=== PATIENT | female | born 1950 | race African-American/Black ===

== ENCOUNTER 2019-04-15 04:52 | Emergency (ER) | payer OTHER ==
[~2019-04-15] VITALS: Ht 167.6 cm; Wt 81.0 kg
[2019-04-15] MEDS ORDERED: NALOXONE HCL 1 MG/ML 2ML VIAL IV ONE ×2 (05:15→05:45)
[2019-04-15] MEDS ORDERED: ONDANSETRON HCL 4MG/2ML INJ IV ONE (05:15)
[2019-04-15] MEDS ORDERED: NALOXONE HCL 1 MG/ML 2ML VIAL ONE (05:42)
[2019-04-15 06:24] LABS: CHLORIDE 90 mEq/L (98-107)
[2019-04-15 06:57] LABS: HEMATOCRIT. 34.5 % (36.0-48.0); HEMOGLOBIN. 11.9 g/dL (12.0-16.0); LYMPHOCYTES % 41.4 % (20.0-50.0); MEAN CORPUSCULAR HEMOGLOBIN 31.7 pg (28.0-32.0); MEAN CORPUSCULAR VOLUME 92.2 fL (81.0-99.0); MONOCYTES % 14.2 % (2.0-8.0); NEUTROPHILS % 38.4 % (40.0-76.0); PLATELET 207 x1000/uL (130-400); RED BLOOD CELL COUNT 3.74 mill/uL (4.2-5.4)
[2019-04-15 07:27] LABS: BG BASE EXCESS -0.8 mmol/L (-2.0-2.0); BG CARBOXYHEMOGLOBIN 0.6 % (0.5-1.5); BG FRACTION INSPIRED OXYGEN 32; BG HCO3 ACT 24.6 mmol/L (22.0-26.0); BG METHEMOGLOBIN 0.3 % (0.0-1.5); BG OXYHEMOGLOBIN 97.1 % (94.0-97.0); BG PCO2 43.5 mmHg (35.0-45.0); BG PO2 110.4 mmHg (75.0-100.0); BG SAMPLE SITE RIGHT BRACHIAL; BG TOTAL HEMOGLOBIN 13.1 g/dL (12.0-18.0); BG VENT MODE NASAL CANNULA
[2019-04-15 08:21] LABS: *AMPHETAMINES SCREEN URINE NEGATIVE (NEGATIVE); *BARBITURATES SCREEN URINE NEGATIVE (NEGATIVE); *BENZODIAZEPINES SCREEN URINE NEGATIVE (NEGATIVE); *COCAINE SCREEN URINE NEGATIVE (NEGATIVE); CANNABINOID URINE SCREEN NEGATIVE (NEGATIVE); METHADONE URINE SCREEN NEGATIVE (NEGATIVE); OPIATES URINE SCREEN PRESUMTIVE POSITIVE (NEGATIVE)
[2019-04-15] MEDS ORDERED: IOHEXOL-350 100 ML BOTTLE ONE (08:21)
[2019-04-15] MEDS ORDERED: SUCCINYLCHOLINE CHLORIDE 200MG/10ML IV ONE ×2 (08:21→08:30)
[2019-04-15] MEDS ORDERED: ETOMIDATE 2MG/ML 10ML VIAL IV ONE ×2 (08:21→08:30)
[2019-04-15 08:22] LABS: PHENCYCLIDINE URINE SCREEN NEGATIVE (NEGATIVE)
[2019-04-15] MEDS ORDERED: PROPOFOL 10MG/ML 100ML 100 ML IV SCH (08:30)
[2019-04-15] MEDS ORDERED: PROPOFOL 200MG/20ML VIAL IV ONE (08:30)
[2019-04-15 09:13] VITALS: BP 100/63
== END 2019-04-15 09:30 | disposition short-term general hospital (02) ==
LOC: ER 04:52 → CANRESERV 10:27 → ENRESERV 10:27 → CANBEDREQ 18:44
DX: I63.9 Cerebral infarction, unspecified (principal); J44.9 Chronic obstructive pulmonary disease, unspecified; I50.9 Heart failure, unspecified; Z88.1 Allergy status to other antibiotic agents; Z88.6 Allergy status to analgesic agent
CPT/HCPCS: 31500; 36415; 36600; 70450; 70496; 70498; 71045; 80053; 80305; 82375; 82805; 82962; 83880; 84484; 85025; 93005; 96374; 96375; 99291; J0330; J2310; J2405; J2704; J3490; Q9967; 94002; A4315

== ENCOUNTER 2020-04-23 18:38 | Emergency (ER) | payer OTHER, MEDICAID ==
[~2020-04-23] VITALS: Ht 170.2 cm; Wt 98.0 kg
[2020-04-23] MEDS ORDERED: SODIUM CHLORIDE 0.9% 1000ML BAG (SEPSIS BOLUS) IV ONE (19:30)
[2020-04-23] MEDS ORDERED: VANCOMYCIN 1 G PREMIX 200 ML IV ONE (19:30)
[2020-04-23] MEDS ORDERED: AZITHROMYCIN 500 MG in DEXT 5% WATER 250 ML IV ONE (19:30)
[2020-04-23] MEDS ORDERED: PIPERACILLIN/TAZ 3.375G PREMIX 50 ML IV ONE (19:30)
[2020-04-23 21:21] LABS: INR 1.3; PROTHROMBIN TIME 13.7 sec (9.6-11.0)
[2020-04-23 21:24] LABS: HEMATOCRIT. 21.4 % (36.0-48.0); HEMOGLOBIN. 7.1 g/dL (12.0-16.0); MEAN CORPUSCULAR HEMOGLOBIN 31.1 pg (28.0-32.0); MEAN CORPUSCULAR VOLUME 93.6 fL (81.0-99.0); MEAN PLATELET VOLUME 8.5 fl (7.4-10.4); PLATELET 119 x1000/uL (130-400); RED BLOOD CELL COUNT 2.29 mill/uL (4.2-5.4); RED CELL DISTRIBUTION WIDTH 13.7 % (11.6-14.6)
[2020-04-23 22:38] LABS: PLATELET ESTIMATE DECREASED
[2020-04-23 23:35] LABS: CHLORIDE 94 mEq/L (98-107)
[2020-04-23 23:39] LABS: ETHANOL BLOOD < 10 mg/dL
[2020-04-24] MEDS ORDERED: ACETAMINOPHEN 650MG SUPP PR ONE (00:15)
[2020-04-24 04:20] VITALS: BP 103/55
== END 2020-04-24 05:07 | disposition short-term general hospital (02) ==
LOC: ER 18:38 → CANBEDREQ 04-24 06:03
DX: J18.9 Pneumonia, unspecified organism (principal); D64.9 Anemia, unspecified; R09.02 Hypoxemia; J45.909 Unspecified asthma, uncomplicated; I50.9 Heart failure, unspecified; J44.9 Chronic obstructive pulmonary disease, unspecified; M32.9 Systemic lupus erythematosus, unspecified; Z88.3 Allergy status to other anti-infective agents; Z88.6 Allergy status to analgesic agent; Z20.828 Contact with and (suspected) exposure to other viral communicable diseases
CPT/HCPCS: 36415; 70450; 71045; 80053; 80320; 83605; 83690; 84145; 84484; 85025; 85610; 86850; 86900; 86901; 87040; 87426; 93005; 96365; 96375; 99285; J0456; J2543; J3370; J7030; J7060; G0480

== ENCOUNTER 2021-04-20 04:26 | Inpatient (IN) | payer OTHER, MEDICAID ==
[~2021-04-20] VITALS: Ht 154.9 cm; Wt 89.1 kg
[~2021-04-20 04:26] MED LIST: ASCO500C18 MT; BACL-141 PO; BACL20TA MT; BIOT10TA2 MT; BISO5TAB13 MT; BLACK ELDERBERRY PO; CALC-1042 MT; CLOP75TA4 MT; CRAN400C PO; CYAN-50 MT; CYCL1DRO6 OP; DULO60CA44 MT; FLUT1BLS8 IH; FOLI0.8C MT; FURO80TA87 MT; HYDR-4009 PO; HYDR200T80 PO; IRON PO; L.AC1CAP6 PO; LEVO112T2 MT; MAGN100T6 PO; MULT-1146 MT; PREG225C MT; PROT20 MT; REV20 MT; SIMV20TA2 MT; TIOT18CA3 INH; TIZA4CAP6 PO; VITAMIN D3 PO
[2021-04-20] MEDS ORDERED: SODIUM CHLORIDE 0.9% 1000ML BAG (SEPSIS BOLUS) IV ONE (05:00)
[2021-04-20] MEDS ORDERED: NOREPINEPHRINE 8MG/250ML PMX 250 ML IV STA (05:12)
[2021-04-20] MEDS ORDERED: PIPERACILLIN/TAZ 3.375G PREMIX 50 ML IV ONE (05:15)
[2021-04-20] MEDS ORDERED: VANCOMYCIN 1 G PREMIX 200 ML IV ONE (05:15)
[2021-04-20 05:19] LABS: BASOPHILS % 0.9 % (0.0-2.0); HEMATOCRIT. 27.9 % (36.0-48.0); HEMOGLOBIN. 9.8 g/dL (12.0-16.0); MEAN CORPUSCULAR HEMOGLOBIN 30.6 pg (28.0-32.0); MEAN CORPUSCULAR VOLUME 87.1 fL (81.0-99.0); MEAN PLATELET VOLUME 7.5 fl (7.4-10.4); MONOCYTES % 8.9 % (2.0-8.0); NEUTROPHILS % 50.2 % (40.0-76.0); PLATELET 295 x1000/uL (130-400); RED BLOOD CELL COUNT 3.21 mill/uL (4.2-5.4); RED CELL DISTRIBUTION WIDTH 14.3 % (11.6-14.6)
[2021-04-20 05:23] LABS: BG BASE EXCESS 2.3 mmol/L (-2.0-2.0); BG CARBOXYHEMOGLOBIN 0.3 % (0.5-1.5); BG DEOXYHEMOGLOBIN 0.3 % (0.0-5.0); BG FRACTION INSPIRED OXYGEN 100; BG HCO3 ACT 24.2 mmol/L (22.0-26.0); BG METHEMOGLOBIN 0.3 % (0.0-1.5); BG OXYGEN SATURATION 99.7 % (92.0-98.5); BG OXYHEMOGLOBIN 99.1 % (94.0-97.0); BG PCO2 28.5 mmHg (35.0-45.0); BG PH 7.546 (7.350-7.450); BG PO2 517.3 mmHg (75.0-100.0); BG SAMPLE SITE RIGHT BRACHIAL; BG TOTAL HEMOGLOBIN 10.7 g/dL (12.0-18.0); BG VENT MODE VENT - AC
[2021-04-20 05:27] LABS: CHLORIDE 96 mEq/L (98-107)
[2021-04-20 05:34] LABS: INR 1.1; PROTHROMBIN TIME 11.4 sec (9.6-11.0)
[2021-04-20] MEDS ORDERED: PROPOFOL 10MG/ML 100ML 100 ML IV ONE (06:15)
[2021-04-20 07:59] LABS: CLARITY URINE CLEAR (CLEAR); COLOR URINE YELLOW (YELLOW); KETONES URINE NEGATIVE (NEGATIVE); LEUKOCYTE ESTERASE URINE NEGATIVE (NEGATIVE); NITRITE URINE NEGATIVE (NEGATIVE); OCCULT BLOOD URINE NEGATIVE (NEGATIVE); PROTEIN URINE NEGATIVE (NEGATIVE); SPECIFIC GRAVITY URINE 1.006 (1.005-1.030); UROBILINOGEN URINE 0.2 E.U./dL (0.2-1.0)
[2021-04-20] MEDS ORDERED: VECURONIUM BROMIDE 10 MG/VIAL IV ONE (08:19)
[2021-04-20] MEDS ORDERED: ETOMIDATE 2MG/ML 10ML VIAL IV ONE (08:19)
[2021-04-20] MEDS ORDERED: FENTANYL CITRATE/PF 1,000 MCG in SODIUM CHLORIDE 0.9% 80 ML IV PRN (08:45)
[2021-04-20] MEDS ORDERED: PROPOFOL 10MG/ML 100ML 100 ML IV PRN (08:45)
[2021-04-20] MEDS ORDERED: FENTANYL CITRATE 2,500 MCG in SODIUM CHLORIDE 0.9% 200 ML IV PRN (09:00)
[2021-04-20] MEDS ORDERED: MAGNESIUM/ALUMINUM HYDROXIDE/SIMETHICONE 30ML UDC PO PRN (09:30)
[2021-04-20] MEDS ORDERED: NITROGLYCERIN 0.4MG TABLET SL SL PRN (09:30)
[2021-04-20] MEDS ORDERED: CLONIDINE 0.1MG TABLET PO PRN (09:30)
[2021-04-20] MEDS ORDERED: DOCUSATE SODIUM 100MG CAPSULE PO PRN (09:30)
[2021-04-20] MEDS ORDERED: GUAIFENESIN 200MG/10ML SUGAR FREE UDC PO PRN (09:30)
[2021-04-20] MEDS ORDERED: ONDANSETRON HCL 4MG/2ML INJ IV PRN (09:30)
[2021-04-20] MEDS ORDERED: NOREPINEPHRINE 8 MG in DEXT 5% WATER 242 ML IV PRN ×2 (09:30→10:00)
[2021-04-20] MEDS ORDERED: ACETAMINOPHEN 325MG TABLET PO PRN (09:30)
[2021-04-20] MEDS ORDERED: VANCOMYCIN 1 G PREMIX 200 ML IV SCH (09:45)
[2021-04-20] MEDS: ENOXAPARIN 40MG/0.4ML SYR SUBCUT SCH (10:09)
[2021-04-20] MEDS: DEXT 5%/LACTATED RINGERS 1,000 ML IV SCH (10:10)
[2021-04-20] MEDS: IPRATROPIUM/ALBUTEROL 0.5-3(2.5)MG/3ML NEB HHN SCH (12:30)
[2021-04-20] MEDS: PIPERACILLIN/TAZ 3.375G PREMIX 50 ML IV SCH ×2 (15:09→22:40)
[2021-04-20 22:46] LABS: CREATINE KINASE MB FRACTION 4.2 ng/mL (0.5-3.6)
[2021-04-21] MEDS ORDERED: VANCOMYCIN 750 MG PREMIX 150 ML IV SCH
[2021-04-21 00:07] LABS: CREATINE KINASE MB FRACTION 5.4 ng/mL (0.5-3.6)
[2021-04-21] MEDS: DEXT 5%/LACTATED RINGERS 1,000 ML IV SCH ×2 (00:18→13:33)
[2021-04-21] MEDS: IPRATROPIUM/ALBUTEROL 0.5-3(2.5)MG/3ML NEB HHN SCH ×5 (02:45→23:39)
[2021-04-21 05:26] LABS: BASOPHILS % 0.7 % (0.0-2.0); EOSINOPHILS % 2.5 % (0.0-5.0); HEMATOCRIT. 28.3 % (36.0-48.0); HEMOGLOBIN. 9.9 g/dL (12.0-16.0); LYMPHOCYTES % 13.7 % (20.0-50.0); MEAN CORPUSCULAR HEMOGLOBIN 30.9 pg (28.0-32.0); MEAN CORPUSCULAR VOLUME 88.4 fL (81.0-99.0); MEAN PLATELET VOLUME 8.1 fl (7.4-10.4); MONOCYTES % 6.8 % (2.0-8.0); NEUTROPHILS % 76.3 % (40.0-76.0); PLATELET 266 x1000/uL (130-400); RED CELL DISTRIBUTION WIDTH 14.2 % (11.6-14.6)
[2021-04-21 05:37] LABS: CHLORIDE 102 mEq/L (98-107)
[2021-04-21 05:51] LABS: PHOSPHORUS 2.5 mg/dL (2.5-4.9)
[2021-04-21] MEDS: PIPERACILLIN/TAZ 3.375G PREMIX 50 ML IV SCH ×3 (06:50→21:48)
[2021-04-21] MEDS: LEVOTHYROXINE SODIUM 112MCG TABLET PO SCH (07:12)
[2021-04-21 08:42] LABS: BG BASE EXCESS 3.2 mmol/L (-2.0-2.0); BG CARBOXYHEMOGLOBIN 0.3 % (0.5-1.5); BG DEOXYHEMOGLOBIN 2.1 % (0.0-5.0); BG HCO3 ACT 27.9 mmol/L (22.0-26.0); BG METHEMOGLOBIN 0.3 % (0.0-1.5); BG OXYGEN SATURATION 97.9 % (92.0-98.5); BG OXYHEMOGLOBIN 97.3 % (94.0-97.0); BG PCO2 43.1 mmHg (35.0-45.0); BG PH 7.429 (7.350-7.450); BG PO2 103.1 mmHg (75.0-100.0); BG SAMPLE SITE RIGHT RADIAL; BG TOTAL HEMOGLOBIN 11.4 g/dL (12.0-18.0); BG VENT MODE VENT - AC
[2021-04-21] MEDS ORDERED: KCL 20MEQ/100ML PREMIX 100 ML IV SCH (09:00)
[2021-04-21] MEDS ORDERED: MAGNESIUM 4 G PREMIX 100 ML IV SCH (09:00)
[2021-04-21] MEDS: ENOXAPARIN 40MG/0.4ML SYR SUBCUT SCH (09:40)
[2021-04-21] MEDS: PANTOPRAZOLE SODIUM 40 MG/VIAL IV SCH (09:40)
[2021-04-21] MEDS: CLOPIDOGREL 75MG TABLET PO SCH (10:04)
[2021-04-21] MEDS: PROPOFOL 10MG/ML 100ML 100 ML IV PRN ×2 (11:44→17:44)
[2021-04-21] MEDS ORDERED: PROPOFOL 10MG/ML 100ML 100 ML IV PRN (15:30)
[2021-04-21] MEDS: VANCOMYCIN 750 MG PREMIX 150 ML IV SCH (16:26)
[2021-04-22] VITALS (63 sets, daily range): BP systolic 85–150; BP diastolic 42–80
[2021-04-22] MEDS: VANCOMYCIN 750 MG PREMIX 150 ML IV SCH ×2 (00:17→12:51)
[2021-04-22] MEDS: DEXT 5%/LACTATED RINGERS 1,000 ML IV SCH ×2 (01:30→14:52)
[2021-04-22 04:48] LABS: BASOPHILS % 0.7 % (0.0-2.0); HEMATOCRIT. 29.2 % (36.0-48.0); LYMPHOCYTES % 22.5 % (20.0-50.0); MEAN CORPUSCULAR HEMOGLOBIN 30.5 pg (28.0-32.0); MEAN CORPUSCULAR VOLUME 89.3 fL (81.0-99.0); MEAN PLATELET VOLUME 8.1 fl (7.4-10.4); MONOCYTES % 9.7 % (2.0-8.0); NEUTROPHILS % 63.1 % (40.0-76.0); PLATELET 301 x1000/uL (130-400); RED BLOOD CELL COUNT 3.27 mill/uL (4.2-5.4); RED CELL DISTRIBUTION WIDTH 14.8 % (11.6-14.6)
[2021-04-22 05:10] LABS: CHLORIDE 101 mEq/L (98-107)
[2021-04-22 05:21] LABS: PHOSPHORUS 3.3 mg/dL (2.5-4.9)
[2021-04-22 05:24] LABS: T4 FREE 0.98 ng/dL (0.76-1.46)
[2021-04-22] MEDS: PIPERACILLIN/TAZ 3.375G PREMIX 50 ML IV SCH (05:44)
[2021-04-22] MEDS: IPRATROPIUM/ALBUTEROL 0.5-3(2.5)MG/3ML NEB HHN SCH ×2 (08:58→21:14)
[2021-04-22] MEDS: CLOPIDOGREL 75MG TABLET PO SCH (09:40)
[2021-04-22] MEDS: PANTOPRAZOLE SODIUM 40 MG/VIAL IV SCH (09:40)
[2021-04-22] MEDS: LEVOTHYROXINE SODIUM 112MCG TABLET PO SCH (09:40)
[2021-04-22] MEDS: ENOXAPARIN 40MG/0.4ML SYR SUBCUT SCH (09:40)
[2021-04-22 09:48] LABS: BG BASE EXCESS -1.4 mmol/L (-2.0-2.0); BG CARBOXYHEMOGLOBIN 0.2 % (0.5-1.5); BG DEOXYHEMOGLOBIN 2.5 % (0.0-5.0); BG FRACTION INSPIRED OXYGEN 30; BG METHEMOGLOBIN 0.2 % (0.0-1.5); BG OXYGEN SATURATION 97.5 % (92.0-98.5); BG OXYHEMOGLOBIN 97.1 % (94.0-97.0); BG PCO2 43.5 mmHg (35.0-45.0); BG PO2 104.6 mmHg (75.0-100.0); BG SAMPLE SITE LEFT RADIAL; BG TOTAL HEMOGLOBIN 10.9 g/dL (12.0-18.0); BG VENT MODE VENT - SIMV
[2021-04-22] MEDS ORDERED: POTA-79 MT (10:12)
[2021-04-22] MEDS ORDERED: ALBU6.7H9 IH (10:12)
[2021-04-22] MEDS: PROPOFOL 10MG/ML 100ML 100 ML IV PRN ×2 (11:05→20:25)
[2021-04-22 13:49] LABS: BG BASE EXCESS 2.5 mmol/L (-2.0-2.0); BG CARBOXYHEMOGLOBIN 0.3 % (0.5-1.5); BG DEOXYHEMOGLOBIN 2.6 % (0.0-5.0); BG FRACTION INSPIRED OXYGEN 40; BG HCO3 ACT 28.2 mmol/L (22.0-26.0); BG METHEMOGLOBIN 0.3 % (0.0-1.5); BG OXYGEN SATURATION 97.4 % (92.0-98.5); BG OXYHEMOGLOBIN 96.8 % (94.0-97.0); BG PCO2 48.8 mmHg (35.0-45.0); BG PO2 98.3 mmHg (75.0-100.0); BG SAMPLE SITE RIGHT RADIAL; BG TOTAL HEMOGLOBIN 11.2 g/dL (12.0-18.0); BG VENT MODE VENT - CPAP
[2021-04-22] MEDS ORDERED: METHYLPREDNISOLONE SOD SUCC 125 MG/2 ML VIAL IV NR (14:45)
[2021-04-22] MEDS: PIPERACILLIN/TAZOBACTAM 3.375G in DEXT 5% WATER 50ML IV SCH ×2 (14:52→21:46)
[2021-04-22] MEDS: METHYLPREDNISOLONE SOD SUCC 125 MG/2 ML VIAL IV SCH (21:45)
[2021-04-23] VITALS (91 sets, daily range): BP systolic 80–140; BP diastolic 37–77
[2021-04-23] MEDS: IPRATROPIUM/ALBUTEROL 0.5-3(2.5)MG/3ML NEB HHN SCH ×4 (02:11→20:17)
[2021-04-23] MEDS: DEXT 5%/LACTATED RINGERS 1,000 ML IV SCH ×2 (05:16→20:53)
[2021-04-23] MEDS: VANCOMYCIN 1 G PREMIX 200 ML IV SCH ×2 (05:56→23:50)
[2021-04-23] MEDS: METHYLPREDNISOLONE SOD SUCC 125 MG/2 ML VIAL IV SCH ×3 (05:56→22:15)
[2021-04-23] MEDS: PIPERACILLIN/TAZOBACTAM 3.375G in DEXT 5% WATER 50ML IV SCH ×3 (05:57→22:15)
[2021-04-23 07:12] LABS: HEMATOCRIT. 28.7 % (36.0-48.0); HEMOGLOBIN. 9.7 g/dL (12.0-16.0); MEAN CORPUSCULAR VOLUME 89.2 fL (81.0-99.0); MEAN PLATELET VOLUME 8.4 fl (7.4-10.4); PLATELET 271 x1000/uL (130-400); RED BLOOD CELL COUNT 3.22 mill/uL (4.2-5.4); RED CELL DISTRIBUTION WIDTH 14.5 % (11.6-14.6)
[2021-04-23] MEDS: CLOPIDOGREL 75MG TABLET PO SCH (08:35)
[2021-04-23] MEDS: ENOXAPARIN 40MG/0.4ML SYR SUBCUT SCH (08:35)
[2021-04-23] MEDS: PANTOPRAZOLE SODIUM 40 MG/VIAL IV SCH (08:35)
[2021-04-23] MEDS: LEVOTHYROXINE SODIUM 112MCG TABLET PO SCH (08:35)
[2021-04-23] MEDS: PROPOFOL 10MG/ML 100ML 100 ML IV PRN ×3 (09:08→20:55)
[2021-04-23] MEDS ORDERED: NON FORMULARY PATIENT HOME MED OP SCH (11:00)
[2021-04-23 13:08] LABS: CHLORIDE 103 mEq/L (98-107)
[2021-04-23] MEDS: CEQUA 0.09% EACHEYE SCH (13:17)
[2021-04-23] MEDS: LACTOBACILLUS GG CAPSULE PO SCH (13:17)
[2021-04-23] MEDS ORDERED: POTASSIUM CHLORIDE 20MEQ TABLET SR PO SCH (13:45)
[2021-04-23 13:48] LABS: NUCLEATED RED BLOOD CELLS 1 /100 WBC; PLATELET ESTIMATE NORMAL
[2021-04-23] MEDS: POLYVINYL ALCOHOL OPHTH DROPS 15ML BOTHEYE SCH (20:53)
[2021-04-24] VITALS (86 sets, daily range): BP systolic 80–135; BP diastolic 47–71
[2021-04-24] MEDS: IPRATROPIUM/ALBUTEROL 0.5-3(2.5)MG/3ML NEB HHN SCH ×3 (02:02→12:00)
[2021-04-24] MEDS: PROPOFOL 10MG/ML 100ML 100 ML IV PRN (04:15)
[2021-04-24] MEDS: PIPERACILLIN/TAZOBACTAM 3.375G in DEXT 5% WATER 50ML IV SCH ×3 (05:40→22:07)
[2021-04-24] MEDS: METHYLPREDNISOLONE SOD SUCC 125 MG/2 ML VIAL IV SCH ×3 (05:40→22:07)
[2021-04-24] MEDS: DEXT 5%/LACTATED RINGERS 1,000 ML IV SCH ×2 (06:36→21:59)
[2021-04-24 06:50] LABS: CHLORIDE 103 mEq/L (98-107)
[2021-04-24 06:51] LABS: BASOPHILS % 0.2 % (0.0-2.0); HEMATOCRIT. 26.6 % (36.0-48.0); HEMOGLOBIN. 9.3 g/dL (12.0-16.0); LYMPHOCYTES % 8.2 % (20.0-50.0); MEAN CORPUSCULAR HEMOGLOBIN 31.1 pg (28.0-32.0); MEAN CORPUSCULAR VOLUME 89.1 fL (81.0-99.0); MONOCYTES % 4.1 % (2.0-8.0); NEUTROPHILS % 87.5 % (40.0-76.0); RED BLOOD CELL COUNT 2.99 mill/uL (4.2-5.4); RED CELL DISTRIBUTION WIDTH 14.3 % (11.6-14.6)
[2021-04-24] MEDS: LACTOBACILLUS GG CAPSULE PO SCH (08:43)
[2021-04-24] MEDS: ENOXAPARIN 40MG/0.4ML SYR SUBCUT SCH (08:43)
[2021-04-24] MEDS: LEVOTHYROXINE SODIUM 112MCG TABLET PO SCH (08:43)
[2021-04-24] MEDS: CLOPIDOGREL 75MG TABLET PO SCH (08:43)
[2021-04-24] MEDS: PANTOPRAZOLE SODIUM 40 MG/VIAL IV SCH (08:43)
[2021-04-24] MEDS: CEQUA 0.09% EACHEYE SCH (08:44)
[2021-04-24 09:20] LABS: BG BASE EXCESS 1.4 mmol/L (-2.0-2.0); BG CARBOXYHEMOGLOBIN 0.3 % (0.5-1.5); BG DEOXYHEMOGLOBIN 1.3 % (0.0-5.0); BG FRACTION INSPIRED OXYGEN 40; BG HCO3 ACT 26.5 mmol/L (22.0-26.0); BG METHEMOGLOBIN 0.3 % (0.0-1.5); BG OXYGEN SATURATION 98.7 % (92.0-98.5); BG OXYHEMOGLOBIN 98.1 % (94.0-97.0); BG PCO2 44.3 mmHg (35.0-45.0); BG PH 7.395 (7.350-7.450); BG PO2 145.9 mmHg (75.0-100.0); BG SAMPLE SITE RIGHT RADIAL; BG TOTAL HEMOGLOBIN 10.2 g/dL (12.0-18.0); BG TOTAL RESPIRATORY RATE 12 b/min; BG VENT MODE VENT - AC
[2021-04-24] MEDS ORDERED: RACEPINEPHRINE 2.25% 0.5ML NEB VIAL HHN PRN (10:00)
[2021-04-24 10:54] LABS: PLATELET 241 x1000/uL (130-400)
[2021-04-24 10:55] LABS: MEAN PLATELET VOLUME 8.8 fl (7.4-10.4)
[2021-04-24 11:19] LABS: BG BASE EXCESS 2.3 mmol/L (-2.0-2.0); BG CARBOXYHEMOGLOBIN 0.3 % (0.5-1.5); BG DEOXYHEMOGLOBIN 2.4 % (0.0-5.0); BG HCO3 ACT 27.4 mmol/L (22.0-26.0); BG METHEMOGLOBIN 0.2 % (0.0-1.5); BG OXYGEN SATURATION 97.6 % (92.0-98.5); BG OXYHEMOGLOBIN 97.1 % (94.0-97.0); BG PH 7.403 (7.350-7.450); BG PO2 103.9 mmHg (75.0-100.0); BG SAMPLE SITE RIGHT RADIAL; BG TOTAL HEMOGLOBIN 10.7 g/dL (12.0-18.0); BG VENT MODE VENT - CPAP
[2021-04-24] MEDS: IPRATROPIUM BROMIDE (0.02%) 0.5MG/2.5ML NEB HHN SCH ×2 (13:29→21:09)
[2021-04-24] MEDS: VANCOMYCIN 1 G PREMIX 200 ML IV SCH (17:54)
[2021-04-24] MEDS: POLYVINYL ALCOHOL OPHTH DROPS 15ML BOTHEYE SCH (22:07)
[2021-04-25] VITALS (95 sets, daily range): BP systolic 110–164; BP diastolic 59–93
[2021-04-25] MEDS: IPRATROPIUM BROMIDE (0.02%) 0.5MG/2.5ML NEB HHN SCH ×4 (02:43→20:45)
[2021-04-25] MEDS: METHYLPREDNISOLONE SOD SUCC 125 MG/2 ML VIAL IV SCH ×3 (06:32→21:19)
[2021-04-25] MEDS: PIPERACILLIN/TAZOBACTAM 3.375G in DEXT 5% WATER 50ML IV SCH ×3 (06:33→22:30)
[2021-04-25] MEDS: DEXT 5%/LACTATED RINGERS 1,000 ML IV SCH ×2 (06:40→21:18)
[2021-04-25] MEDS: MORPHINE SULFATE 2 MG/ML CPJ (NOT FOR IM USE) IV PRN ×4 (07:16→22:50)
[2021-04-25] MEDS: CLOPIDOGREL 75MG TABLET PO SCH (08:51)
[2021-04-25] MEDS: ENOXAPARIN 40MG/0.4ML SYR SUBCUT SCH (08:51)
[2021-04-25] MEDS: LEVOTHYROXINE SODIUM 112MCG TABLET PO SCH (08:51)
[2021-04-25] MEDS: CEQUA 0.09% EACHEYE SCH (08:51)
[2021-04-25] MEDS: PANTOPRAZOLE SODIUM 40 MG/VIAL IV SCH (08:51)
[2021-04-25] MEDS: LACTOBACILLUS GG CAPSULE PO SCH (08:51)
[2021-04-25] MEDS ORDERED: VANCOMYCIN 1 G PREMIX 200 ML IV SCH (18:00)
[2021-04-25] MEDS: POLYVINYL ALCOHOL OPHTH DROPS 15ML BOTHEYE SCH (21:17)
[2021-04-26] VITALS (60 sets, daily range): BP systolic 113–156; BP diastolic 61–116
[2021-04-26] MEDS: MORPHINE SULFATE 2 MG/ML CPJ (NOT FOR IM USE) IV PRN ×5 (02:55→21:35)
[2021-04-26] MEDS: ACETYLCYSTEINE 100MG/ML 10% VIAL 4ML INH SCH ×2 (04:36→08:47)
[2021-04-26] MEDS: IPRATROPIUM BROMIDE (0.02%) 0.5MG/2.5ML NEB HHN SCH ×4 (04:36→20:21)
[2021-04-26] MEDS: LEVOTHYROXINE SODIUM 112MCG TABLET PO SCH (07:42)
[2021-04-26] MEDS: PANTOPRAZOLE SODIUM 40 MG/VIAL IV SCH (09:30)
[2021-04-26] MEDS: ENOXAPARIN 40MG/0.4ML SYR SUBCUT SCH (09:31)
[2021-04-26] MEDS: CLOPIDOGREL 75MG TABLET PO SCH (09:31)
[2021-04-26] MEDS: CEQUA 0.09% EACHEYE SCH (09:31)
[2021-04-26] MEDS: LACTOBACILLUS GG CAPSULE PO SCH (09:31)
[2021-04-26] MEDS: METHYLPREDNISOLONE SOD SUCC 125 MG/2 ML VIAL IV SCH ×2 (09:31→21:34)
[2021-04-26] MEDS: DEXT 5%/LACTATED RINGERS 1,000 ML IV SCH (12:17)
[2021-04-26] MEDS: PREGABALIN 25MG CAPSULE PO SCH ×2 (13:42→21:34)
[2021-04-26] MEDS: IPRATROPIUM/ALBUTEROL 0.5-3(2.5)MG/3ML NEB HHN PRN (20:20)
[2021-04-26] MEDS: POLYVINYL ALCOHOL OPHTH DROPS 15ML BOTHEYE SCH (21:34)
[2021-04-27] VITALS (12 sets, daily range): BP systolic 124–167; BP diastolic 73–107
[2021-04-27] MEDS: ACETYLCYSTEINE 100MG/ML 10% VIAL 4ML INH SCH ×4 (00:55→21:17)
[2021-04-27] MEDS: IPRATROPIUM BROMIDE (0.02%) 0.5MG/2.5ML NEB HHN SCH ×3 (00:56→13:11)
[2021-04-27] MEDS: MORPHINE SULFATE 2 MG/ML CPJ (NOT FOR IM USE) IV PRN ×6 (01:40→21:51)
[2021-04-27] MEDS: DEXT 5%/LACTATED RINGERS 1,000 ML IV SCH ×2 (01:43→15:33)
[2021-04-27] MEDS: PANTOPRAZOLE SODIUM 40 MG/VIAL IV SCH (09:06)
[2021-04-27] MEDS: ENOXAPARIN 40MG/0.4ML SYR SUBCUT SCH (09:06)
[2021-04-27] MEDS: METHYLPREDNISOLONE SOD SUCC 40 MG/ML VIAL IV SCH (09:06)
[2021-04-27] MEDS: CEQUA 0.09% EACHEYE SCH (11:11)
[2021-04-27] MEDS: LEVOTHYROXINE SODIUM 112MCG TABLET PO SCH (11:11)
[2021-04-27] MEDS: PREGABALIN 25MG CAPSULE PO SCH ×2 (11:11→21:52)
[2021-04-27] MEDS: LACTOBACILLUS GG CAPSULE PO SCH (11:11)
[2021-04-27] MEDS: CLOPIDOGREL 75MG TABLET PO SCH (11:11)
[2021-04-27] MEDS: ACETAMINOPHEN 325MG TABLET PO PRN (12:00)
[2021-04-27] MEDS ORDERED: NALOXONE HCL 0.4MG/ML VIAL IV PRN (12:45)
[2021-04-27] MEDS: POLYVINYL ALCOHOL OPHTH DROPS 15ML BOTHEYE SCH (21:51)
[2021-04-27] MEDS: ENOXAPARIN 30MG/0.3ML SYR SUBCUT SCH (21:51)
[2021-04-28] VITALS (13 sets, daily range): BP systolic 118–157; BP diastolic 59–90
[2021-04-28] MEDS: ACETYLCYSTEINE 100MG/ML 10% VIAL 4ML INH SCH ×3 (01:24→16:58)
[2021-04-28] MEDS: MORPHINE SULFATE 2 MG/ML CPJ (NOT FOR IM USE) IV PRN ×2 (02:58→08:31)
[2021-04-28] MEDS: DEXT 5%/LACTATED RINGERS 1,000 ML IV SCH ×2 (05:14→17:53)
[2021-04-28] MEDS: LEVOTHYROXINE SODIUM 112MCG TABLET PO SCH (05:15)
[2021-04-28] MEDS: IPRATROPIUM BROMIDE (0.02%) 0.5MG/2.5ML NEB HHN SCH ×3 (08:21→21:30)
[2021-04-28] MEDS: CEQUA 0.09% EACHEYE SCH (08:29)
[2021-04-28] MEDS: METHYLPREDNISOLONE SOD SUCC 40 MG/ML VIAL IV SCH (08:30)
[2021-04-28] MEDS: ENOXAPARIN 30MG/0.3ML SYR SUBCUT SCH ×2 (08:30→22:20)
[2021-04-28] MEDS: CLOPIDOGREL 75MG TABLET PO SCH (08:30)
[2021-04-28] MEDS: PREGABALIN 25MG CAPSULE PO SCH (08:30)
[2021-04-28] MEDS: LACTOBACILLUS GG CAPSULE PO SCH (08:30)
[2021-04-28] MEDS: PANTOPRAZOLE SODIUM 40 MG/VIAL IV SCH (08:30)
[2021-04-28] MEDS: HYDROXYCHLOROQUINE SULFATE 200MG TABLET PO SCH (14:30)
[2021-04-28] MEDS: SILDENAFIL CITRATE 20MG TABLET PO SCH ×2 (14:30→22:20)
[2021-04-28] MEDS ORDERED: FUROSEMIDE 40MG/4ML VIAL IVP NR (16:30)
[2021-04-28] MEDS: DILTIAZEM HCL 30MG TABLET PO SCH ×2 (17:53→22:19)
[2021-04-28] MEDS: PREGABALIN 50 MG CAPSULE PO SCH (22:20)
[2021-04-28] MEDS: POLYVINYL ALCOHOL OPHTH DROPS 15ML BOTHEYE SCH (22:20)
[2021-04-29] VITALS (14 sets, daily range): BP systolic 125–153; BP diastolic 48–79
[2021-04-29] MEDS: IPRATROPIUM BROMIDE (0.02%) 0.5MG/2.5ML NEB HHN SCH ×4 (01:24→19:00)
[2021-04-29] MEDS: SILDENAFIL CITRATE 20MG TABLET PO SCH ×3 (06:29→21:44)
[2021-04-29] MEDS: DILTIAZEM HCL 30MG TABLET PO SCH (06:29)
[2021-04-29] MEDS: DEXT 5%/LACTATED RINGERS 1,000 ML IV SCH (06:29)
[2021-04-29] MEDS: LEVOTHYROXINE SODIUM 112MCG TABLET PO SCH (06:29)
[2021-04-29] MEDS: HYDROXYCHLOROQUINE SULFATE 200MG TABLET PO SCH (09:23)
[2021-04-29] MEDS: LACTOBACILLUS GG CAPSULE PO SCH (09:23)
[2021-04-29] MEDS: PANTOPRAZOLE SODIUM 40 MG/VIAL IV SCH (09:23)
[2021-04-29] MEDS: CLOPIDOGREL 75MG TABLET PO SCH (09:23)
[2021-04-29] MEDS: PREGABALIN 50 MG CAPSULE PO SCH ×2 (09:23→20:35)
[2021-04-29] MEDS: METHYLPREDNISOLONE SOD SUCC 40 MG/ML VIAL IV SCH (09:23)
[2021-04-29] MEDS: FUROSEMIDE 40MG/4ML VIAL IVP SCH (09:23)
[2021-04-29] MEDS: ENOXAPARIN 30MG/0.3ML SYR SUBCUT SCH ×2 (09:24→20:35)
[2021-04-29] MEDS: CEQUA 0.09% EACHEYE SCH (09:25)
[2021-04-29] MEDS: ACETYLCYSTEINE 100MG/ML 10% VIAL 4ML INH SCH ×3 (10:14→20:21)
[2021-04-29] MEDS: DILTIAZEM HCL 60MG TABLET PO SCH ×2 (14:20→21:44)
[2021-04-29 17:00] LABS: CHLORIDE 97 mEq/L (98-107)
[2021-04-29] MEDS ORDERED: POTASSIUM CHLORIDE 20MEQ/PACKET GT NR (17:52)
[2021-04-29] MEDS ORDERED: POTASSIUM CHLORIDE INJ 40 MEQ in DEXT 5% WATER 250 ML IV NR (18:30)
[2021-04-29] MEDS: IPRATROPIUM/ALBUTEROL 0.5-3(2.5)MG/3ML NEB HHN PRN (20:20)
[2021-04-29] MEDS: POLYVINYL ALCOHOL OPHTH DROPS 15ML BOTHEYE SCH (20:35)
[2021-04-29] MEDS ORDERED: ZOLPIDEM TARTRATE 5MG TABLET PO NR (22:00)
[2021-04-30] VITALS (18 sets, daily range): BP systolic 112–138; BP diastolic 59–100
[2021-04-30] MEDS: IPRATROPIUM BROMIDE (0.02%) 0.5MG/2.5ML NEB HHN SCH ×4 (00:37→21:30)
[2021-04-30] MEDS: LEVOTHYROXINE SODIUM 112MCG TABLET PO SCH (05:53)
[2021-04-30] MEDS: DILTIAZEM HCL 60MG TABLET PO SCH ×3 (05:54→22:23)
[2021-04-30] MEDS: SILDENAFIL CITRATE 20MG TABLET PO SCH ×2 (05:54→14:16)
[2021-04-30] MEDS: ACETAMINOPHEN 325MG TABLET PO PRN (06:25)
[2021-04-30] MEDS: PANTOPRAZOLE SODIUM 40 MG/VIAL IV SCH (08:22)
[2021-04-30] MEDS: METHYLPREDNISOLONE SOD SUCC 40 MG/ML VIAL IV SCH (08:22)
[2021-04-30] MEDS: FUROSEMIDE 40MG/4ML VIAL IVP SCH (08:22)
[2021-04-30] MEDS: PREGABALIN 50 MG CAPSULE PO SCH ×2 (08:30→20:24)
[2021-04-30] MEDS: ENOXAPARIN 30MG/0.3ML SYR SUBCUT SCH ×2 (08:30→20:24)
[2021-04-30] MEDS: CLOPIDOGREL 75MG TABLET PO SCH (08:30)
[2021-04-30] MEDS: HYDROXYCHLOROQUINE SULFATE 200MG TABLET PO SCH (08:30)
[2021-04-30] MEDS: LACTOBACILLUS GG CAPSULE PO SCH (08:30)
[2021-04-30] MEDS: CEQUA 0.09% EACHEYE SCH (08:31)
[2021-04-30] MEDS: ACETYLCYSTEINE 100MG/ML 10% VIAL 4ML INH SCH (09:20)
[2021-04-30 09:21] LABS: CHLORIDE 101 mEq/L (98-107)
[2021-04-30] MEDS ORDERED: BARIUM SULFATE 176 GM SUSP.RECON ONE (10:53)
[2021-04-30] MEDS ORDERED: SPIRONOLACTONE 25MG TABLET PO SCH (13:45)
[2021-04-30] MEDS: POLYVINYL ALCOHOL OPHTH DROPS 15ML BOTHEYE SCH (20:24)
== END 2021-04-30 23:01 | disposition short-term general hospital (02) | DRG 870 ==
LOC: ER 04:26 → MICUSO 06:04 → CVICU 04-22 05:50 → 3WST 04-26 14:16
PROVIDERS: ADMIT Internal Medicine; ATTEND Internal Medicine
PROC: 5A1955Z Respiratory Ventilation, Greater than 96 Consecutive Hours (ICD-10-PCS; principal; 2021-04-20)
PROC: 02HV33Z Insertion of Infusion Device into Superior Vena Cava, Percutaneous Approach (ICD-10-PCS; 2021-04-20)
PROC: B548ZZA Ultrasonography of Superior Vena Cava, Guidance (ICD-10-PCS; 2021-04-20)
PROC: 0BH17EZ Insertion of Endotracheal Airway into Trachea, Via Natural or Artificial Opening (ICD-10-PCS; 2021-04-20)
PROC: 02HV33Z Insertion of Infusion Device into Superior Vena Cava, Percutaneous Approach (ICD-10-PCS; 2021-04-28)
PROC: B548ZZA Ultrasonography of Superior Vena Cava, Guidance (ICD-10-PCS; 2021-04-28)
DX: A41.9 Sepsis, unspecified organism (principal); E43 Unspecified severe protein-calorie malnutrition; J18.9 Pneumonia, unspecified organism; J96.01 Acute respiratory failure with hypoxia; R65.21 Severe sepsis with septic shock; G92 Toxic encephalopathy; J69.0 Pneumonitis due to inhalation of food and vomit; I50.33 Acute on chronic diastolic (congestive) heart failure; E87.1 Hypo-osmolality and hyponatremia; J44.0 Chronic obstructive pulmonary disease with (acute) lower respiratory infection; D64.9 Anemia, unspecified; E83.51 Hypocalcemia; E89.0 Postprocedural hypothyroidism; G62.9 Polyneuropathy, unspecified; I50.9 Heart failure, unspecified; I73.00 Raynaud's syndrome without gangrene; K21.9 Gastro-esophageal reflux disease without esophagitis; I27.20 Pulmonary hypertension, unspecified; I11.0 Hypertensive heart disease with heart failure; M48.061 Spinal stenosis, lumbar region without neurogenic claudication; M79.7 Fibromyalgia; Z20.822 Contact with and (suspected) exposure to COVID-19; Z51.5 Encounter for palliative care; Z83.3 Family history of diabetes mellitus; Z86.73 Personal history of transient ischemic attack (TIA), and cerebral infarction without residual deficits; Z88.6 Allergy status to analgesic agent; Z88.1 Allergy status to other antibiotic agents; Z88.8 Allergy status to other drugs, medicaments and biological substances; Z79.899 Other long term (current) drug therapy; Z79.891 Long term (current) use of opiate analgesic; Z79.890 Hormone replacement therapy; Z79.84 Long term (current) use of oral hypoglycemic drugs; Z68.37 Body mass index [BMI] 37.0-37.9, adult
CPT/HCPCS: 36415; 36600; 70551; 71045; 74230; 76937; 80048; 80053; 80061; 80202; 81003; 82375; 82550; 82553; 82805; 82962; 83605; 83735; 83880; 84100; 84145; 84439; 84443; 84478; 84484; 85025; 87070; 87426; 92610; 92611; 93005; 93970; 94003; 94640; 94667; 97162; 97530; 99291; C1725; C9113; J1650; J1940; J2270; J2543; J2704; J2920; J2930; J3010; J3370; J3475; J3480; J3490; J7030; J7050; J7060; J7121; J7608; A4315